=== PATIENT | female | born 1985 | race Caucasian/White ===

== ENCOUNTER 2016-10-01 19:35 | Inpatient (IN) | payer BC ==
[~2016-10-01] VITALS: Ht 157.5 cm; Wt 77.0 kg
[2016-10-01 19:51] VITALS: BP 128/98
[2016-10-01 20:17] VITALS: BP 139/96
[2016-10-01] MEDS ORDERED: PRENATAL TABLE1 EAC3 PO (20:59)
[2016-10-01] MEDS ORDERED: VIT C-ROSE HIP500 MG PO (21:00)
[2016-10-01] MEDS ORDERED: VITAMIN E & D B52 ML TP (21:01)
[2016-10-01] MEDS ORDERED: IRON240 MG PO (21:02)
[2016-10-01 21:08] LABS: EOSINOPHIL (%) 0.3 % (0-5); HEMATOCRIT 33.4 % (36.0-46.0); IMMATURE GRANULOCYTE (%) 0.5 % (0.0-0.7); IMMATURE GRANULOCYTE COUNT 0.1 K/uL; INSTRUMENT ABS NEUTROPHIL CT 8.8 K/uL; LYMPHOCYTE COUNT 2.4 K/uL (1.0-2.8); MCH 29.7 PG (29.0-34.0); MCHC 33.2 G/DL (30.0-36.0); MCV 89.3 FL (83-99); MONOCYTE (%) 6.7 % (3-12); MONOCYTE COUNT 0.8 K/uL (0-0.8); NEUTROPHIL (%) 72.8 % (45-76); NEUTROPHIL COUNT 8.8 K/uL (1.8-6.4); PLATELET COUNT 217 K/uL (156-360); RBC DIS.WIDTH-SD 42.5 % (39-53); RED BLOOD COUNT 3.74 M/uL (3.80-5.20); WHITE BLOOD COUNT 12.1 K/uL (4.1-10.2)
[2016-10-01 22:02] VITALS: BP 126/90
[2016-10-01 22:37] LABS: CHLORIDE 102 mEq/L (99-109); SODIUM 137 mEq/L (136-147)
[2016-10-01 22:39] LABS: GLUCOSE 70 mg/dL (70-99)
[2016-10-01 22:40] LABS: ANION GAP 11 MEQ/L (2-14)
[2016-10-01 22:41] LABS: TOTAL BILIRUBIN 0.4 mg/dL (0.0-1.0)
[2016-10-01 22:43] LABS: ALKALINE PHOSPHATASE 197 IU/L (3-129); GFR ESTIMATE (CALCULATED) > 59 mL/min/
[2016-10-01 22:44] LABS: UREA NITROGEN (BUN) 8 mg/dL (9-23)
[2016-10-01 23:29] VITALS: BP 132/94
[2016-10-02] VITALS (17 sets, daily range): BP systolic 103–151; BP diastolic 63–95
[2016-10-02 01:41] LABS: AMPHETAMINES QUANT VALUE 0 NG/ML; BARBITUATES QUANT VALUE 0 NG/ML; BENZODIAZEPINES QUANT VALUE 0 NG/ML; BENZODIAZEPINES, URINE SCREEN Negative (200 ng/mL); OPIATES QUANTITATIVE VALUE 0 NG/ML; PHENCYCLIDINE QUANT VALUE 0 NG/ML; UR CREATININE CONCENTRATION 111.9 MG/DL
[2016-10-02] MEDS ORDERED: MOTRIN800 MG PO (04:39)
[2016-10-03 07:20] VITALS: BP 118/75
[2016-10-03 09:25] LABS: BASOPHIL COUNT 0.1 K/uL (0-0.1); EOSINOPHIL (%) 0.8 % (0-5); EOSINOPHIL COUNT 0.1 K/uL (0-0.3); HEMATOCRIT 28.6 % (36.0-46.0); IMMATURE GRANULOCYTE (%) 0.6 % (0.0-0.7); IMMATURE GRANULOCYTE COUNT 0.1 K/uL; INSTRUMENT ABS NEUTROPHIL CT 6.9 K/uL; LYMPHOCYTE COUNT 2.9 K/uL (1.0-2.8); MCH 29.5 PG (29.0-34.0); MCHC 31.8 G/DL (30.0-36.0); MCV 92.9 FL (83-99); MEAN PLAT.VOLUME 10.5 uM^3 (9.5-12.4); MONOCYTE (%) 5.8 % (3-12); MONOCYTE COUNT 0.6 K/uL (0-0.8); NEUTROPHIL COUNT 6.9 K/uL (1.8-6.4); PLATELET COUNT 203 K/uL (156-360); RBC DIS.WIDTH-CV 13.2 % (11.8-14.6); RBC DIS.WIDTH-SD 44.6 % (39-53); RED BLOOD COUNT 3.08 M/uL (3.80-5.20); WHITE BLOOD COUNT 10.6 K/uL (4.1-10.2)
== END 2016-10-03 17:04 | disposition home or self-care (01) | DRG 775 ==
LOC: LDRP-OP 19:35 → 2WEST 19:39
PROVIDERS: Midwife; Obstetrics & Gynecology
PROC: 10E0XZZ Delivery of Products of Conception, External Approach (ICD-10-PCS; principal; 2016-10-03)
DX: O99.324 Drug use complicating childbirth (principal); Z3A.37 37 weeks gestation of pregnancy; O99.344 Other mental disorders complicating childbirth; F42.9 Obsessive-compulsive disorder, unspecified; O09.33 Supervision of pregnancy with insufficient antenatal care, third trimester; Z37.0 Single live birth; F12.90 Cannabis use, unspecified, uncomplicated
CPT/HCPCS: 80053; 80306 90; 82570; 84156; 85025; 86850; 86900; 86901; C1755; G0378; J3010; J7120

== ENCOUNTER 2018-02-06 20:13 | Emergency (ER) | payer BC ==
[~2018-02-06] VITALS: Ht 157.5 cm; Wt 69.2 kg
[~2018-02-06 20:13] MED LIST: IRON240 MG PO; MOTRIN800 MG PO; PRENATAL TABLE1 EAC3 PO; VIT C-ROSE HIP500 MG PO; VITAMIN E & D B52 ML TP
[2018-02-06] MEDS ORDERED: DIFLUCAN150 MG PO (21:49)
[2018-02-06] MEDS ORDERED: DOXYCYCLINE HY100 MG PO (21:49)
[2018-02-06] MEDS ORDERED: FLAGYL500 MG PO (21:49)
[2018-02-06] MEDS ORDERED: ZOFRAN4 MG PO (21:49)
[2018-02-06 22:07] VITALS: BP 145/99
== END 2018-02-06 22:08 | disposition home or self-care (01) ==
LOC: EME 20:13
DX: S61.451A Open bite of right hand, initial encounter (principal); W55.01XA Bitten by cat, initial encounter; T36.0X5A Adverse effect of penicillins, initial encounter; R19.7 Diarrhea, unspecified; R11.11 Vomiting without nausea; K50.90 Crohn's disease, unspecified, without complications
CPT/HCPCS: 99281; 99283